=== PATIENT | female | born 1970 | race Caucasian/White ===

== ENCOUNTER 2017-04-07 08:04 | Outpatient (CLI) | payer OTHER | END 2017-04-07 08:05 | disposition home or self-care (01) | LOC: BICMAMMO 08:04 | PROVIDERS: ATTEND Family Medicine | DX: Z12.31 Encounter for screening mammogram for malignant neoplasm of breast (principal); Z80.3 Family history of malignant neoplasm of breast | CPT/HCPCS: 77063; 77067 ==

== ENCOUNTER 2018-05-21 13:01 | Outpatient (CLI) | payer OTHER ==
--- NOTE | 2018-05-21 14:48 | MMO ---
Bilateral MAMMO Bilat Screen [facility]. CLINICAL HISTORY: Patient is 48 years old and is seen for screening. The patient has the following family history of breast cancer: paternal grandmother, at age 80 and mother, at age 34. The patient has no personal history of cancer. VIEWS: The views performed were: bilateral craniocaudal with tomosynthesis and bilateral mediolateral oblique with tomosynthesis. FILMS COMPARED: The present examination has been compared to prior imaging studies performed at [facility] on 11/21/2011, 05/27/2013, 09/06/2014, 09/15/2015 and 04/07/2017. MAMMOGRAM FINDINGS: There are scattered fibroglandular densities. There is a new mass measuring 7 x 12 mm with circumscribed margins seen in the middle region of the right breast at 12 o'clock. In the left breast, there are no suspicious masses, calcifications or areas of architectural distortion. IMPRESSION: NEW MASS IN THE RIGHT BREAST REQUIRES ADDITIONAL EVALUATION. ADDITIONAL PROJECTIONS ARE RECOMMENDED. AN ULTRASOUND EXAM IS RECOMMENDED. ADDITIONAL IMAGING. THE RESULTS OF THIS EXAM WERE SENT TO THE PATIENT. ACR BI-RADS Category 0 - Incomplete: Need additional imaging evaluation. [facility] will notify the patient of the need for additional imaging services. MAMMOGRAPHY NOTE: 1. A negative mammogram report should not delay a biopsy if a dominant of clinically suspicious mass is present. 2. Approximately 10% to 15% of breast cancers are not detected by mammography. 3. Adenosis and dense breasts may obscure an underlying neoplasm.
== END 2018-05-21 13:02 | disposition home or self-care (01) ==
LOC: BICMAMMO 13:01
PROVIDERS: ATTEND Family Medicine
DX: Z12.31 Encounter for screening mammogram for malignant neoplasm of breast (principal); Z80.3 Family history of malignant neoplasm of breast; N63.10 Unspecified lump in the right breast, unspecified quadrant
CPT/HCPCS: 77063; 77067

== ENCOUNTER 2018-05-27 13:33 | Outpatient (CLI) | payer OTHER ==
--- NOTE | 2018-05-27 14:38 | MMO ---
Right Breast MAMMO Unilat Diag DDI RT+KEV. CLINICAL HISTORY: Patient is 48 years old and is seen for additional evaluation requested from prior study. The patient has the following family history of breast cancer: paternal grandmother, at age 80 and mother, at age 34. The patient has no personal history of cancer. VIEWS: The views performed were: right craniocaudal spot compression; right mediolateral oblique spot compression; and right mediolateral. FILMS COMPARED: The present examination has been compared to prior imaging studies performed at [facility] on 11/12/2005, 11/15/2005, 12/16/2007, 04/07/2009, 11/09/2010, 11/21/2011, 05/27/2013, 09/06/2014, 09/15/2015, 04/07/2017, 05/21/2018 and 05/27/2018. MAMMOGRAM FINDINGS: There are scattered fibroglandular densities. There is a round mass measuring 8 millimeters seen in the upper region of the right breast. The mass was shown to be a cyst on ultrasound. There are no suspicious masses, suspicious calcifications, or new areas of architectural distortion. IMPRESSION: THERE IS NO MAMMOGRAPHIC EVIDENCE OF MALIGNANCY. A ROUTINE FOLLOW-UP MAMMOGRAM IN 1 YEAR IS RECOMMENDED. THE RESULTS OF THIS EXAM WERE SENT TO THE PATIENT. ACR BI-RADS Category 2 - Benign finding MAMMOGRAPHY NOTE: 1. A negative mammogram report should not delay a biopsy if a dominant of clinically suspicious mass is present. 2. Approximately 10% to 15% of breast cancers are not detected by mammography. 3. Adenosis and dense breasts may obscure an underlying neoplasm.
--- NOTE | 2018-05-27 14:47 | ULT ---
DIAGNOSTIC RIGHT BREAST ULTRASOUND: INDICATIONS: Mammographic mass. Follow-up imaging. TECHNIQUE: Exam is performed in conjunction with diagnostic mammography. FINDINGS: There is a circumscribed, oval, anechoic focus with through transmission of sound at the 12 o'clock l ocation of the right breast, which does correspond to a mammographic mass. This measures 8 mm. Dopp ler evaluation is performed, which does not reveal evidence of internal flow. IMPRESSION: BI-RADS 2-Benign findings. Benign cyst is present at the 12 o'clock location of the right breast, ac counting for mammographic mass. Recommend follow-up annual screening mammography. POS: OFF
== END 2018-05-27 13:34 | disposition home or self-care (01) ==
LOC: BICMAMMO 13:33
PROVIDERS: ATTEND Family Medicine
DX: N63.10 Unspecified lump in the right breast, unspecified quadrant (principal); N60.01 Solitary cyst of right breast
CPT/HCPCS: G0279

== ENCOUNTER 2019-07-20 06:41 | Outpatient (CLI) | payer OTHER ==
[2019-07-20 15:57] LABS: #Eosinphils 0.1 thou/uL (0.0-0.7); #Lymphocytes 1.9 thou/uL (1.20-3.40); #Monocytes 0.5 thou/uL (0.11-0.59); #Neutrophils 3.8 thou/uL (1.40-6.50); %Basophils 0.6 % (0.0-1.0); %Eosinophils 1.8 % (0.0-10.0); %Lymphocytes 30.3 % (21.0-51.0); %Monocytes 7.9 % (0.0-10.0); %Neutrophils 59.5 % (42.0-75.0); Hemoglobin 13.7 g/dL (12.0-16.0); Mean Corpuscular HGB CONC 33.5 g/dL (32.0-36.0); Mean Corpuscular Hemoglobin 30.5 pg (27.0-31.0); Mean Corpuscular Volume 91.1 fL (78.0-98.0); Mean Platelet Volume 7.9 fL (7.4-10.4); Platelet Count 217 thou/uL (130-400); RBC Distribution Width 11.9 % (11.5-14.5); Red Blood Cell (RBC) Count 4.49 mill/uL (4.20-5.40); White Blood Cell (WBC) Count 6.3 thou/uL (4.8-10.8)
[2019-07-21 18:04] LABS: SARS-CoV-2 MS2 Positive; SARS-CoV-2 N Gene Negative; SARS-CoV-2 S Gene Negative; SARS-CoV-2 orf1ab Negative
== END 2019-07-20 06:42 | disposition home or self-care (01) ==
LOC: LABBT 06:41
PROVIDERS: ATTEND Orthopaedic Surgery Sports Medicine
DX: Z01.818 Encounter for other preprocedural examination (principal); Z11.59 Encounter for screening for other viral diseases; M75.02 Adhesive capsulitis of left shoulder
CPT/HCPCS: 85025; 87635; U0003

== ENCOUNTER 2019-07-22 10:30 | Day surgery (SDC) | payer OTHER ==
[2019-07-22] MEDS ORDERED: Midazolam HCl 2 mg/2 ml Vial ONE (11:00)
[2019-07-22] MEDS ORDERED: Fentanyl 100 MCG/2 ML VIAL ONE ×2 (11:00→11:34)
[2019-07-22] MEDS ORDERED: Ketorolac Tromethamine 30 MG/ML VIAL ONE (11:21)
[2019-07-22] MEDS ORDERED: Bupivacaine HCl 0.5%/Epinephrine 1:200,000/PF 30 ml Vial ONE (11:21)
[2019-07-22] MEDS ORDERED: PROPOFOL 200 MG/20 ML VIAL ONE (11:21)
[2019-07-22] MEDS ORDERED: Rocuronium Bromide 10 MG/ML (10ML VIAL) ONE (11:21)
[2019-07-22] MEDS ORDERED: Ondansetron PF 4 MG/2 ML Vial ONE (11:21)
[2019-07-22] MEDS ORDERED: Dexamethasone 20 MG/5 ML VIAL ONE (11:21)
[2019-07-22] MEDS ORDERED: CEFAZOLIN 1 GM VIAL ONE (11:40)
[2019-07-22] MEDS ORDERED: Sodium Chloride 0.9% 100 ML ONE (11:40)
[2019-07-22] MEDS ORDERED: Dexamethasone 4 mg/ml Vial ONE (12:13)
--- NOTE | 2019-07-22 19:19 | OP ---
DATE OF PROCEDURE: 07/22/2019 PREOPERATIVE DIAGNOSES: Left shoulder adhesive capsulitis, left shoulder subacromial impingement. POSTOPERATIVE DIAGNOSES: 1. Left shoulder adhesive capsulitis. 2. Left shoulder subacromial impingement syndrome. PROCEDURES PERFORMED: 1. Examination under anesthesia with closed manipulation and release of adhesions. 2. Diagnostic arthroscopy. 3. Extensive arthroscopic debridement of the left shoulder. 4. Arthroscopic subacromial decompression acromioplasty. ANESTHESIA: General with interscalene block. BLOOD LOSS: Minimal. DRAINS: None. COMPLICATIONS: None. DESCRIPTION OF PROCEDURE: Following induction of general anesthesia, the patient was placed supine on the operating room table. Left shoulder was carefully examined, noted to have abduction of 45 degrees and flexion of 60 degrees. Internal and external rotation were markedly restricted. The closed manipulation was performed gently with flexion of the shoulder, adduction of the shoulder, and abduction in external rotation. A full unrestricted range of motion of the shoulder was obtained following release of adhesions resulted in audible and palpable release of adhesions. The patient was then placed in a right lateral decubitus position on the operating room table. Left shoulder was placed in arm holding device using 10 pounds of longitudinal traction. Left shoulder was then prepped and draped in a sterile fashion for surgery on the left shoulder, and arthroscope was inserted through a posterior portal and the shoulder joint was examined. The intraarticular aspect of the shoulder demonstrated normal articular cartilage of the glenohumeral joint. There was noted to be marked erythema of the capsule surrounding the shoulder. The biceps tendon had marked erythema. The manipulation had resulted in release of adhesions from the anterior, inferior, and posterior capsule. Through an anterior portal, the glenohumeral joint was debrided extensively using motorized shaver. The undersurface of the rotator cuff was completely normal. After extensive debridement, the arthroscope was inserted in the subacromial space. There was noted to be marked bursal operatory in subacromial space. Anterolateral portal was established, and the motorized shaver was used to debride the adhesions in the subacromial space. Extensive bursectomy was performed. There was noted to be lateral downsloping acromion and impingement on the superficial surface of rotator cuff. There was marked superficial fraying of the rotator cuff. No evidence of tearing requiring repair and acromioplasty was performed by releasing the coracoacromial ligament. Using electrocautery, hemostasis was maintained after release of the CA ligament and acromioplasty was performed using a motorized shaver from anterior to posterior in an oblique fashion, removing approximately 4 to 5 mm in anterolateral aspect of the acromion. A smooth/subacromial surface was obtained, and the subacromial space was well decompressed. The bursal tissue and excess tissue were debrided. The arthroscope was then reinserted into the glenohumeral joint, and the glenohumeral joint was inflated using a saline. The saline was removed. An 18-gauge spinal needle was placed in the glenohumeral joint under direct arthroscopic visualization. The arthroscopic equipment was removed, and 8 mg of dexamethasone was inserted into the glenohumeral joint. The wounds were closed using robert. A large compressive sterile dressing was applied. The patient tolerated the procedure well, was taken to recovery room in stable condition. Job ID: [id number]
== END 2019-07-22 16:38 | disposition home or self-care (01) ==
LOC: SDC 10:30
PROVIDERS: ATTEND Orthopaedic Surgery Sports Medicine
DX: M75.02 Adhesive capsulitis of left shoulder (principal); M75.41 Impingement syndrome of right shoulder; G89.18 Other acute postprocedural pain; Z79.899 Other long term (current) drug therapy; Z88.2 Allergy status to sulfonamides
CPT/HCPCS: J0670; J0690; J1100; J1885; J2250; J2405; J2704; J3010; J3490

== ENCOUNTER 2020-11-08 12:05 | Outpatient (CLI) | payer OTHER | END 2020-11-08 12:06 | disposition home or self-care (01) | LOC: BICMAMMO 12:05 | PROVIDERS: ATTEND Family Medicine | DX: Z12.31 Encounter for screening mammogram for malignant neoplasm of breast (principal); Z80.3 Family history of malignant neoplasm of breast | CPT/HCPCS: 77063; 77067 ==

== ENCOUNTER 2021-11-09 12:51 | Outpatient (CLI) | payer BC, OTHER | END 2021-11-09 12:52 | disposition home or self-care (01) | LOC: BICMAMMO 12:51 | PROVIDERS: ATTEND Family Medicine | DX: Z12.31 Encounter for screening mammogram for malignant neoplasm of breast (principal); Z13.820 Encounter for screening for osteoporosis; N95.9 Unspecified menopausal and perimenopausal disorder; M81.0 Age-related osteoporosis without current pathological fracture; Z80.3 Family history of malignant neoplasm of breast | CPT/HCPCS: 77063; 77067; 77080 ==

== ENCOUNTER 2022-11-29 08:22 | Outpatient (CLI) | payer BC | END 2022-11-29 08:23 | disposition home or self-care (01) | LOC: BICMAMMO 08:22 | PROVIDERS: ATTEND Family Medicine | DX: M81.0 Age-related osteoporosis without current pathological fracture (principal); M85.851 Other specified disorders of bone density and structure, right thigh; M85.852 Other specified disorders of bone density and structure, left thigh | CPT/HCPCS: 77080 ==

== ENCOUNTER 2024-12-08 09:35 | Outpatient (CLI) | payer BC | END 2024-12-08 09:36 | disposition home or self-care (01) | LOC: SCSBT 09:35 | PROVIDERS: ATTEND Student in an Organized Health Care Education/Training Program | DX: M81.0 Age-related osteoporosis without current pathological fracture (principal); M85.859 Other specified disorders of bone density and structure, unspecified thigh | CPT/HCPCS: 77080 ==